=== PATIENT | male | born 1965 | race Caucasian/White ===

== ENCOUNTER → 2017-02-16 | Outpatient (CLI) | payer BC ==
[~2017-02-16] MED LIST: OXYC-57 PO
--- NOTE | 2017-02-16 09:09 | DIAGNOSTIC IMAGING REPORT ---
CHEST 2 VIEWS ROUTINE CLINICAL HISTORY: G47.33 R05 G47.9 E66.01 cough. COMPARISON STUDY: 07/09/2012 FINDINGS: The bones soft tissues and hemidiaphragms are normal. The cardiomediastinal silhouette is normal. The lungs are clear. The pulmonary vasculature is normal. IMPRESSION: Negative chest. The above report was generated using voice recognition software. It may contain grammatical, syntax or spelling errors. Electronically signed by: Robert Brown M.D. 02/16/2017 9:08 AM Dictated Date/Time: 02/16/2017 9:08 AM
== END | disposition home or self-care (01) ==
LOC: C.RAD1850 08:50
PROVIDERS: ATTEND Family Medicine
DX: G47.33 Obstructive sleep apnea (adult) (pediatric) (principal); R05 Cough; G47.9 Sleep disorder, unspecified; E66.01 Morbid (severe) obesity due to excess calories

== ENCOUNTER 2018-05-11 05:47 | Observation (INO) ==
--- NOTE | 2018-05-06 17:58 | PAT Medication Instructions ---
Medication Instructions Date of Service May 07, 2018 Home Medications divalproex [Depakote] 1,500 mg PO HS lisdexamfetamine [Vyvanse] 60 mg PO QAM sertraline [Zoloft] 100 mg PO HS DO NOT take the morning of surgery lisdexamfetamine [Vyvanse] 60 mg PO QAM Take morning of surgery NOTHING TO EAT OR DRINK AFTER MIDNIGHT Take evening before surgery divalproex [Depakote] 1,500 mg PO HS sertraline [Zoloft] 100 mg PO HS Other Notes If you have any questions please call us at [phone] or [phone] or [phone] or [phone]
--- NOTE | 2018-05-07 08:19 | Anesthesiology Consultation ---
Date of Service May 07, 2018 Assessment & Plan (1) Encounter for pre-operative examination: Chart Review Chart Review: Acceptable Risk for Surgery and Patient seen in Pre Admission Testing Consults Requested none Teaching & Discussion Pre-Anesthesia Teaching/Discussion Notes: Instructed NPO after midnight before surgery, except medications with 15 cc of water. Medication instructions provided according to the PAT guidelines. History Surgery Operation Date: 05/11/18 07:15 Proposed Procedures p Laparoscopic Repair of Incisional and Umbilical Hernia with Mesh, Possible Open - Joshua Mullins MD, FACS Height/Weight Height: 6 ft Weight: 142.1 kg Allergies Allergy/AdvReac Type Severity Reaction Status Date / Time Iodinated Contrast- Oral and AdvReac Unknown AVOID DUE Verified 05/05/18 15:54 IV Dye TO NOT HAVING LEFT KIDNEY NSAIDS (Non-Steroidal AdvReac Unknown NOT TO USE Verified 05/05/18 15:54 Anti-Inflamma DUE TO REMOVAL OF LT KIDNEY Medications Home Medications Medication Instructions Recorded Confirmed Last Taken divalproex [Depakote] 1,500 mg PO HS 05/05/18 05/05/18 Unknown lisdexamfetamine [Vyvanse] 60 mg PO QAM 05/05/18 05/05/18 Unknown sertraline [Zoloft] 100 mg PO HS 05/05/18 05/05/18 Unknown Past Medical History Medical History Anxiety Attention deficit disorder (ADD) Depression Diverticular disease Sleep apnea CPAP HS Past Surgical History Surgical History Fusion of spine X3 CERVICAL. PT STATES HE HAS MILD LOSS OF ROM. 06/25/10 - Intubation x 1 attempt DVL with MAC #4/able to see base of vocal cords with cricoid pressure. Grade III - IV view. ETT #8.0. History of appendectomy History of arthroscopy BILATERAL KNEE History of bowel resection HX OF BOWEL RESECTION 2001, 2 FEET OF BOWEL S/T DIVERTICULITIS History of colonoscopy X2 History of nephrectomy LEFT. KIDNEY DONATION Past Anesthesia History No Hx of Anesthesia Complications and No Family Hx of Anesthesia Complications History of PONV No Motion Sickness Screening History of Motion Sickness: No Social History Smoking Status: Former smoker tobacco type: cigarettes and smokeless tobacco Smoking cigarettes per day: QUIT IN 2003. SMOKED 1.5 PPD X 23 YEARS Do You Dip or Chew Tobacco: No (QUIT IN ) Hx Alcohol Use: Yes alcohol intake frequency: holidays/special occasions only Alcohol Intake Frequency Comment: 0 Hx Substance Use: No substance use type: does not use Exercise / Class Metabolic Activity II 4-5 Yardwork/Stairs/Walk up hill (Able to climb FOS. Denies CP or SOB. Sedentary at work (computer installer)) Review of Systems Patient denies chest pain, shortness of breath, dyspnea on exertion, wheezing, palpitations. +joint pain (generalized) +acid reflux (only when eating certain foods late at night) +cough (when post nasal drip acting up) Physical Exam Vital Signs BP: 134/68 P: 72 R: 18 T: 97.8 SPO2: 97% on RA Constitutional + obese ENMT Mouth: + poor dentition Thyromental Distance: > or= 3.5 Finger Breadths (4) Mallampati Class: III Neck normal visual inspection, trachea midline, + thick neck, + limited neck extension (due to cervical fusions) and + facial hair (advised) Respiratory normal respiratory effort Auscultation: lungs clear to auscultation bilaterally Cardiovascular Rate/Rhythm: regular rate and regular rhythm Heart Sounds: no murmur Vessels: no carotid bruit Neurologic moves all extremities Psychiatric Orientation: alert and oriented x 3 Testing Electrocardiogram Date: 05/07/18 Findings: + NSR @ (65) and + no change from (06/09/13) Chest X-Ray Date: 05/07/18 Findings: + NAD FINDINGS: The cardiac and mediastinal contours are normal. There is no evidence of focal pulmonary consolidation. There is no evidence of failure. No pleural effusions are visualized. IMPRESSION: No active disease in the chest. Stress Test Date: 04/14/16 Type: exercise Resting EF: 55-59% The stress ECHO is negative for inducible ischemia. The stress EKG response showed no evidence of ischemia. Exercise capacity is average. The LV wall thickness is mildly increased (concentric). The left atrium is mildly enlarged. No significant valvular disease is present. Laboratory Results 05/07/18 08:48 05/07/18 08:48
--- NOTE | 2018-05-07 09:25 | XRay Report ---
XR chest Pre-admission PA/Lat CLINICAL HISTORY: Preoperative chest COMPARISON STUDY: 02/16/2017 FINDINGS: The cardiac and mediastinal contours are normal. There is no evidence of focal pulmonary co nsolidation. There is no evidence of failure. No pleural effusions are visualized.[ IMPRESSION: No active disease in the chest. Electronically signed by: Nitish Bhatt M.D. 05/07/2018 9:24 AM
[2018-05-07 09:53] LABS: Basophils # (auto) 0.01 K/uL (0-0.2); Basophils % (auto) 0.3 %; Eosinophils # (auto) 0.27 K/uL (0-0.5); Eosinophils % (auto) 7.6 %; Hematocrit (blood only) 40.3 % (42-52); Hemoglobin 12.9 g/dL (14.0-18.0); Immature Granulocytes # (auto) 0.02 K/uL (0.00-0.02); Immature Granulocytes % (auto) 0.6 %; Lymphocytes # (auto) 1.08 K/uL (1.2-3.4); Lymphocytes % (auto) 30.6 %; Mean Corpuscular Volume 86.5 fL (80-100); Mean Platelet Volume 9.6 fL (7.4-10.4); Monocytes # (auto) 0.22 K/uL (0.11-0.59); Monocytes % (auto) 6.2 %; Neutrophils # (auto) 1.93 K/uL (1.4-6.5); Neutrophils % (auto) 54.7 %; Platelet Count 136 K/uL (130-400); RDW Coefficient of Variation 14.1 % (11.5-14.5); RDW Standard Deviation 44.4 fL (36.4-46.3); Red Blood Count 4.66 M/uL (4.7-6.1); White Blood Count 3.53 K/uL (4.8-10.8)
[2018-05-07 09:58] LABS: BUN Creatinine Ratio 14.6 (10-20); Creatinine Clr Calc Pharmacy 116.5 ml/min; Est GFR (African American) 91.8; Est GFR (Non-African American) 79.2; Potassium 4.2 mmol/L (3.5-5.1)
[2018-05-11] MEDS ORDERED: LR 15ML/HR IV SCH (06:00)
--- NOTE | 2018-05-11 06:30 | History & Physical Bridge Note ---
Date of Service May 11, 2018 History & Physical Bridge Note I have examined the patient, reviewed the History & Physical and in the interval since the performance of the History & Physical I have noted the following changes of clinical significance: no changes noted all questions answered pt marked
[2018-05-11] MEDS ORDERED: BACITRACIN INJ 50,000 UNIT VIAL ONE (06:37)
[2018-05-11] MEDS ORDERED: BUPIVACAINE 0.5 % 5 MG/1 ML MPF 30ML VIAL ONE (06:37)
[2018-05-11] MEDS ORDERED: MIDAZOLAM HCL 1 MG/ML 2ML VIAL ONE (06:49)
[2018-05-11] MEDS ORDERED: fentaNYL citrate 100 MCG/2 ML VIAL ONE ×3 (06:49→08:44)
[2018-05-11] MEDS ORDERED: ACETAMINOPHEN 1000 MG/100 ML IV IV ONE (06:51)
[2018-05-11] MEDS ORDERED: CEFAZOLIN 3000MG 72.5 ML IV ONE (07:27)
[2018-05-11] MEDS ORDERED: NEOSTIGMINE METHYLSULFATE 5 MG/5 ML SYR ONE (07:31)
[2018-05-11] MEDS ORDERED: LIDOCAINE HCL 2% 2 ML VIAL/AMP(20MG/ML) INFIL ONE (07:31)
[2018-05-11] MEDS ORDERED: ONDANSETRON INJ 2 MG/ML 2 ML VIAL ONE (07:31)
[2018-05-11] MEDS ORDERED: GLYCOPYRROLATE 0.2 MG/ML VIAL ONE (07:31)
[2018-05-11] MEDS ORDERED: DEXAMETHASONE SOD INJ 4 MG/ML VIAL ONE (07:31)
[2018-05-11] MEDS ORDERED: PROPOFOL IV EMULSION 10 MG/ML 20 ML VIAL IV ONE ×2 (07:31→08:45)
[2018-05-11] MEDS ORDERED: ROCURONIUM BROMIDE 10 MG/ML 5 ML VIAL ONE ×3 (07:31→09:06)
[2018-05-11] MEDS ORDERED: fentaNYL citrate 100 MCG/2 ML VIAL IV PRN (07:38)
[2018-05-11] MEDS ORDERED: PROMETHAZINE HCL 6.25 MG in SODIUM CHLORIDE 0.9% 50 ML IV PRN (07:38)
[2018-05-11] MEDS ORDERED: ONDANSETRON INJ 2 MG/ML 2 ML VIAL IV PRN ×2 (07:38→10:48)
[2018-05-11] MEDS ORDERED: ATROPINE SULFATE 0.1 MG/ML 10ML SYR IV PRN (07:38)
[2018-05-11] MEDS ORDERED: ePHEDrine sulfate 50 MG/ML AMP IV PRN (07:38)
[2018-05-11] MEDS ORDERED: ePHEDrine sulfate 50 MG/ML SYR ONE (07:43)
--- NOTE | 2018-05-11 09:18 | Post Operative Brief Note ---
Immediate Post Op Note v1 Date of Surgery May 11, 2018 Pre & Post Diagnosis Operation Date: 05/11/18 07:00 Pre-Op Diagnosis: Incisional Hernia Post-Op Diagnosis: Incisional Hernia Procedure Operation Date: 05/11/18 07:00 Actual Procedures p Lysis extensive abdominal adhesions; Multiples abdominal incisional hernia; 20 cm surgimesh(Not Applicable) - Joshua Mullins MD, FACS Surgeon Joshua Mullins MD, FACS Business Account Manager dinora SMITH Estimated Blood Loss 30 Findings Consistent with Post-Op Diagnosis
--- NOTE | 2018-05-11 09:38 | Operative Report ---
Post Operative Report Pre & Post Diagnosis Operation Date: 05/11/18 07:00 Pre-Op Diagnosis: Incisional Hernia Post-Op Diagnosis: Incisional Hernia Procedure Operation Date: 05/11/18 07:00 Actual Procedures p Lysis extensive abdominal adhesions; Multiples abdominal incisional hernia; 20 cm surgimesh(Not Applicable) - Joshua Mullins MD, FACS The patient was brought into the operating theater supine position general endotracheal anesthesia systemic antibiotics given abdomen was prepped Betadine scrub solution properly draped a timeout was had made a small incision right in the thinned out umbilical tissue deepened to subcutaneous tissue to we were able to enter the abdomen after incising the fascia and placing 0 Vicryl retention sutures pretty much under direct visualization we placed a hemostat and a 5 mm trocar CO2 insufflated at this point we were able to see that the patient had multiple adhesions we were able to break crucified adhesions to the anterior abdominal wall with the camera so area where an open area in the right upper quadrant with air we placed a 5 mm epigastric subcostal port with preemptive local analgesic and eventually we would placed the camera in that area that visualized adhesions to the abdominal wall quite intensively we then placed a 5 mm right lower quadrant port similarly fashion and then we were able to place 2 other ports in left upper quadrant left lower quadrant after we had dissected out some of the adhesions to the anterior abdominal wall adhesions was mostly small bowel and omentum it was tedious dissection in fact we spent proximal three quarters of the operative time which was over 2 hours dissecting out all these adhesions under direct visualization make sure not the end of the bowel once we had freed this up from the midline incision we were able to see that the patient had at least 3 or 4 different herniations coming through one definitively at the umbilical area the other ones in the towards epigastric and one inferior to the umbilical once we outlined were able to be marked with a the neck to the fact of these hernias then was placed patient had a 20 cm surgery mesh is a size we rolled it up placed that through the umbilical port into the abdomen and then used the suture passer we elevated the central portion just above the umbilicus and then used 2 rows of 30 absorbable tackers the abdominal mesh was quite secure the anterior abdominal wall within the time as we do sometimes with the nylon sutures once this been for hemostasis was satisfactory we then took individual trochars we closed the umbilical incision once we have placed the mesh through it by using his retention suture 2-0 Vicryl and tying it. 4-0 Monocryl was used any other Steri-Strips applied procedure was tolerate d well by the patient estimated blood loss 30 cc patient was taken recovery in good condition addendum B Beryl SMITH present throughout the procedure helped with exposure traction camera work intact and the mesh and closing the wound Surgeon Joshua Mullins MD, FACS Veterinary Laboratory Technician b beryl SMITH Estimated Blood Loss 30 Findings Consistent with Post-Op Diagnosis Specimens none Description of Procedure merda I attest to the content of the Intraoperative Record and any orders documented therein. Any exceptions are noted below.
--- NOTE | 2018-05-11 10:32 | Anesthesiology Progress Note ---
Date of Service May 11, 2018 Anesthesia Post Procedure Vital Signs Vital Signs: Temp Pulse Pulse Resp BP Pulse Ox 05/11/18 10:15 72 18 130/71 94 05/11/18 10:05 73 18 129/73 94 05/11/18 09:55 71 18 133/74 95 05/11/18 09:45 36.3 C L 87 18 154/80 H 94 05/11/18 06:06 37 C 62 16 131/78 96 Notes Mental Status: alert / awake / arousable Patient Amnestic to Procedure: Yes Nausea / Vomiting: adequately controlled Pain: adequately controlled Airway Patency, RR, SpO2: stable & adequate BP & HR: stable & adequate Hydration State: stable & adequate Anesthetic Complications: no major complications apparent
[2018-05-11] MEDS ORDERED: MoRPHine SULFATE 4 MG/ML 1 ML CARP\\VIAL IV PRN (10:48)
[2018-05-11] MEDS ORDERED: OXYCODONE/ACETAMINOPHEN 5mg/325mg TAB PO PRN (10:48)
[2018-05-11] MEDS: LACTATED RINGER'S 1,000 ML IV SCH ×2 (11:59→22:51)
[2018-05-11] MEDS: OXYCODONE/ACETAMINOPHEN 5mg/325mg TAB PO PRN ×2 (13:19→20:59)
[2018-05-11] MEDS: LISDEXAMFETAMINE 60 MG SCH ×2 (16:06→22:52)
[2018-05-11] MEDS ORDERED: DIVALPROEX EXTENDED RELEASE 500 MG TAB PO SCH (21:00)
[2018-05-11] MEDS ORDERED: SERTRALINE HCL 100 MG TABLET PO SCH (21:00)
--- NOTE | 2018-05-12 07:21 | Surgery Progress Note ---
Date of Service May 12, 2018 Assessment & Plan (1) Incisional hernia: POD 1 lap repair multiple incisional hernias increase diet, activity likely home later today Subjective no complaints, on full liquids, no nausea, po analgesics Physical Exam Vital Signs (Past 24 Hours): Last Vital Signs Temp 36.6 C 05/12/18 02:50 Pulse 66 05/12/18 02:50 Resp 16 05/12/18 02:50 BP 123/70 05/12/18 02:50 Pulse Ox 92 05/12/18 02:50 Gastrointestinal (Abdomen): Inspection/Auscultation: abdomen not distended Percussion/Palpation: abdomen soft
[2018-05-12] MEDS: OXYCODONE/ACETAMINOPHEN 5mg/325mg TAB PO PRN (07:39)
[2018-05-12] MEDS: LISDEXAMFETAMINE 60 MG SCH (08:57)
--- NOTE | 2018-05-12 08:57 | Surgery Progress Note ---
Date of Service May 12, 2018 Assessment & Plan (1) Incisional hernia: POD 1 lap repair multiple incisional hernias increase diet, activity likely home later today Subjective no complaints sore Physical Exam Vital Signs (Past 24 Hours): Last Vital Signs Temp 36.8 C 05/12/18 07:52 Pulse 65 05/12/18 07:52 Resp 14 05/12/18 07:52 BP 135/78 05/12/18 07:52 Pulse Ox 92 05/12/18 07:52 Physical Exam: alert coherent in no distress op findings discussed with pt Gastrointestinal (Abdomen): soft trocar sites fine
--- NOTE | 2018-05-12 09:21 | Anesthesiology Progress Note ---
Date of Service May 12, 2018 Anesthesia Post Procedure Vital Signs Vital Signs: Temp Pulse Pulse Pulse Resp BP Pulse Ox 05/12/18 07:52 36.8 C 65 14 135/78 92 05/12/18 02:50 36.6 C 66 16 123/70 92 05/11/18 22:52 36.8 C 73 16 118/72 91 05/11/18 19:15 37.0 C 82 18 121/71 93 05/11/18 15:17 36.9 C 86 18 130/74 91 05/11/18 13:48 36.5 C 80 16 129/76 92 05/11/18 12:45 36.9 C 88 18 126/78 94 05/11/18 11:53 67 16 125/70 94 05/11/18 11:20 36.5 C 65 16 123/74 95 05/11/18 10:45 36.5 C 78 16 145/79 H 97 05/11/18 10:30 36.4 C L 71 18 133/70 94 05/11/18 10:15 72 18 130/71 94 05/11/18 10:05 73 18 129/73 94 05/11/18 09:55 71 18 133/74 95 05/11/18 09:45 36.3 C L 87 18 154/80 H 94 Pain Intensity Abdomen: Pain Intensity: 5 Notes Mental Status: alert / awake / arousable and participated in evaluation Patient Amnestic to Procedure: Yes Nausea / Vomiting: adequately controlled Pain: adequately controlled Airway Patency, RR, SpO2: stable & adequate BP & HR: stable & adequate Hydration State: stable & adequate Anesthetic Complications: no major complications apparent and Pt Satisfied with anesthetic care
--- NOTE | 2018-05-13 07:58 | Discharge Summary ---
Date of Service May 13, 2018 Principal Diagnosis Multiple incisional hernias Discharge Exam Gastrointestinal (Abdomen) Inspection/Auscultation: + abdominal surgical incision (clean, dry); abdomen not distended Percussion/Palpation: abdomen soft Discharge Data Allergies Allergy/AdvReac Type Severity Reaction Status Date / Time Iodinated Contrast- Oral and AdvReac Unknown AVOID DUE Verified 05/11/18 06:04 IV Dye TO NOT HAVING LEFT KIDNEY NSAIDS (Non-Steroidal AdvReac Unknown NOT TO USE Verified 05/11/18 06:04 Anti-Inflamma DUE TO REMOVAL OF LT KIDNEY Procedures Performed Operation Date: 05/11/18 07:00 Actual Procedures p Lysis of extensive abdominal adhesions; Multiples abdominal incisional hernia; 20 cm surgimesh(Not Applicable) - Joshua Mullins MD, FACS Hospital Course (1) Incisional hernia: 52 y/o male taken to the OR for elective laparoscopic repair of multiple incisional hernias with extensive lysis of adhesions. He was admitted for overnight observation given the extent of dissection and large mesh placement. He was doing well POD 1, was tolerating diet and po analgesics. He was stable for discharge. Total Time Total Time Spent Total Time Spent (In Minutes): 10 Discharge Plan Discharge Items Patient Disposition: Home - Self-Care Reason For Visit: Incisional Hernia Discharge Diagnosis: hernia repair Discharge Goals: Decrease discomfort Activity: Per 'Additional Instructions' section Lifting: No more than 10 pounds Bathing Comment: ok to shower tomorrow Driving/Machine Use: Resume 3 days after discharge Non-emergency contact: Surgeon Call non-emergency contact if: you have any medication questions, your pain is not controlled, you have a fever, your temperature is above 101.5 and your wound has increased redness Follow-up/Referrals: Joshua Mullins MD, FACS [Surgeon] - (In 1 week as planned, call if you have any questions) Kaila Shukla [Primary Care Provider] - Diet: Regular Addtl Provider Instructions: Prescriptions: New oxycodone-acetaminophen [Percocet] 5-325 mg tablet 1 - 2 tab PO Q4H PRN (Reason: pain) Qty: 15 RF: 0 Continued sertraline [Zoloft] 100 mg Tablet 100 mg PO HS RF: 0 Vyvanse 60 mg Capsule 60 mg PO QAM RF: 0 divalproex 500 mg tablet extended release 24 hr 1,500 mg PO HS RF: 0 Stand-Alone Forms: [facility], [facility] Discharge Orders: Discharge Order (Routine); Ordered 05/12/18 Ordered By: Jose Cordoba Jr Admission Data Admit Date/Time: 05/11/18 10:06 Attending Provider: Joshua Mullins Admit Provider: Joshua Mullins Primary Care Provider: Kaila Shukla Service: Surgical Services Other Interventions: Discharge Summary Assessment (RN) Last Done: 05/12/18 10:29 DC Date/Time DO NOT enter until pt leaves facility: 05/12/18 12:12
== END 2018-05-12 12:12 | disposition home or self-care (01) ==
LOC: ASU 05:47 → 3N 05:47